=== PATIENT | male | born 1960 | race Caucasian/White ===

== ENCOUNTER 2023-08-26 08:05 | Emergency (ER) | payer BC ==
[2023-08-26] MEDS ORDERED: Sodium Chloride 0.9% 10 ML Syringe FLUSH PRN (08:28)
[2023-08-26] MEDS ORDERED: Ondansetron 4 MG/2 ML SDV IVPUSH ONE (08:28)
[2023-08-26] MEDS ORDERED: Sodium Chloride 0.9% 1,000 ML IV SCH (08:30)
[2023-08-26] MEDS ORDERED: Meclizine 25 MG Tab PO ONE (08:31)
[2023-08-26 09:00] LABS: BASOPHILS PERCENT AUTO 0.5 % (0.0-1.0); EOSINOPHILS ABSOLUTE AUTO 0.1 K/mm3 (0.0-0.4); EOSINOPHILS PERCENT AUTO 3.3 % (0.0-6.0); HEMATOCRIT 35.6 % (42.0-52.0); HEMOGLOBIN 12.8 gm/dl (14.0-18.0); IMMATURE GRAN ABSOLUTE AUTO 0.01 K/mm3 (0.00-0.05); IMMATURE GRAN PERCENT AUTO 0.5 % (0.0-0.4); LYMPHOCYTES ABSOLUTE AUTO 0.6 K/mm3 (1.0-4.8); LYMPHOCYTES PERCENT AUTO 27.6 % (24.0-44.0); MEAN CORPUSCULAR HEMOGLOBIN 35.4 pg (28.0-32.0); MEAN CORPUSCULAR VOLUME 98.3 fl (83.0-99.0); MEAN PLATELET VOLUME 9.1 fl (9.4-12.4); MONOCYTES ABSOLUTE AUTO 0.4 K/mm3 (0.0-0.8); NEUTROPHILS PERCENT AUTO 48.1 % (41.0-71.0); PLATELET COUNT,PLT 116 K/mm3 (150-400); RED BLOOD CELL COUNT 3.62 M/mm3 (4.52-5.90)
[2023-08-26 09:11] LABS: A/G RATIO 1.1 (1-2); BILIRUBIN TOTAL 0.6 mg/dL (0.2-1.0); BUN/CREATININE RATIO 11.4 (14-18); CALCIUM 9.2 mg/dL (8.5-10.1); CREATININE 1.4 mg/dL (0.7-1.3); EST CRCL DRUG DOSING (CG) 53.61 mL/min; PROTEIN TOTAL,TP 7.8 g/dl (6.4-8.2)
== END 2023-08-26 10:09 | disposition home or self-care (01) ==
LOC: JD.ED 08:05
DX: R42 Dizziness and giddiness (principal); C71.9 Malignant neoplasm of brain, unspecified
CPT/HCPCS: 36415; 70450; 80053; 84484; 85025; 93005; 96374; 99284; A9270; J2405; J3490; J7030; 93010